=== PATIENT | female | born 1970 | race Caucasian/White ===

== ENCOUNTER 2017-01-10 17:34 | Emergency (ER) | payer OTHER ==
[2017-01-10 18:05] VITALS: BP 144/71; PULSE 84; RESP 14; TEMP 99.5; O2SAT 94
--- NOTE | 2017-01-10 18:10 | UCPHY ---
H & P Patient Type: New Chief Complaint Nursing Narrative: cough/L sided "lung" pain/fever/congestion x 3 days. all 3 kids positive for flu B. Time Seen by Provider: 01/10/17 18:01 HPI/ROS: CHIEF COMPLAINT: Fever, cough HISTORY OF PRESENT ILLNESS: Patient is a 46-year-old female who comes to the Urgent Care complaining of a fever cough and body aches. She has had the symptoms for 4 days. Her and all 3 children and been diagnosed with influenza B. they have been started on Tamiflu. She denies having any type of asthma or respiratory history but does complain of occasional wheezing this illness. She has been using her 's albuterol with moderate improvement. REVIEW OF SYSTEMS: Constitutional: See HPI EENTM: See HPI Respiratory: See HPI Cardiac: denies: chest pain, irregular heart rate, lightheadedness, palpitations Gastrointestinal/Abdominal: denies: abdominal pain, diarrhea, nausea, vomiting, blood streaked stools Genitourinary: denies: dysuria, frequency, hematuria, pain Musculoskeletal: denies: joint pain, muscle pain Skin: denies: lesions, rash, jaundice, bruising Neurological: denies: headache, numbness, paresthesia, tingling, dizziness, weakness Hematologic/Lymphatic: denies: blood clots, easy bleeding, easy bruising Immunologic/allergic: denies: HIV/AIDS, transplant EXAM: GENERAL: Well-appearing HEAD: Atraumatic, normocephalic. EYES: Pupils equal round and reactive to light, extraocular movements intact, sclera anicteric, conjunctiva are normal. ENT: TMs normal, nares patent, oropharynx clear without exudates. Moist mucous membranes. NECK: Normal range of motion, supple without lymphadenopathy or JVD. LUNGS: Breath sounds clear to auscultation bilaterally and equal. No wheezes rales or rhonchi. HEART: Regular rate and rhythm without murmurs, rubs or gallops. ABDOMEN: Soft, nontender, normoactive bowel sounds. No guarding, no rebound. No masses appreciated. BACK: No CVA tenderness, no spinal tenderness, step-offs or deformities EXTREMITIES: Normal range of motion, no pitting or edema. No clubbing or cyanosis. NEUROLOGICAL: Cranial nerves II through XII grossly intact. Normal speech, normal gait. 5/5 strength, normal movement in all extremities, normal sensation PSYCH: Normal mood, normal affect. SKIN: Warm, dry, normal turgor, no visible rashes or lesions. Source: Patient - Personal History LMP (Females 10-55): 8-14 Days Ago - Medical/Surgical History Hx Asthma: No Hx Chronic Respiratory Disease: No Hx Diabetes: No Hx Cardiac Disease: No Hx Renal Disease: No Other PMH: none - Family History Significant Family History: No pertinent family hx - Social History Smoking Status: Never smoked Alcohol Use: Sober Drug Use: None Constitutional: Initial Vital Signs Temperature (C) 37.5 C 01/10/17 17:57 Heart Rate 84 01/10/17 17:57 Respiratory Rate 14 01/10/17 17:57 Blood Pressure 144/71 H 01/10/17 17:57 O2 Sat (%) 94 01/10/17 17:57 O2 Delivery Mode Room Air Allergies/Adverse Reactions: No Known Allergies Allergy (Unverified 01/10/17 17:57) Home Medications: Medication Instructions Recorded Acetaminophen/Codeine 300/30Mg 1 - 2 each PO Q6 PRN #14 tab 01/10/17 [Tylenol #3 (RX)] Medical Decision Making - Diagnostics Imaging: X-ray: chest x-ray was obtained. I viewed the images myself on the PACS system. My interpretation of the images is: negative for acute disease . The radiologist interpretation is pending. ED Course/Re-evaluation: I discussed the patient's x-rays. She is relieved. She is too late to start Tamiflu. We discussed decongestants. I will also give her a dose of steroids to help with the pain in her throat and ribs when coughing. Differential Diagnosis: Partial list of the Differential diagnosis considered include but were not limited to; bronchitis, influenza, viral syndrome and although unlikely based on the history and physical exam, I also considered pneumonia, sepsis. I discussed these differential diagnoses and the plan with the patient as well as the usual and expected course. The patient understands that the diagnosis is provisional and that in medicine we are not always correct and that further workup is often warranted. Usual and customary warnings were given. All of the patient's questions were answered. The patient was instructed to return to the emergency department should the symptoms at all worsen or return, otherwise to followup with the physician as we discussed. - Data Points Laboratory Results: 01/10/17 18:00 Influenza Typ A,B (DFA) POSITIVE FOR FLU B H (NEGATIVE) Medications Given: Discontinued Medications Hydrocodone Bitart/Acetaminophen ([place] 5/325mg Prepack#6) 1 btl TAKEHOME EDNOW ONE Stop: 01/10/17 18:51 Last Admin: 01/10/17 19:36 Dose: 1 btl Dexamethasone (Decadron) 10 mg PO EDNOW ONE Stop: 01/10/17 18:50 Last Admin: 01/10/17 19:35 Dose: 10 mg Departure - Departure Disposition: Home, Routine, Self-Care Clinical Impression: Influenza B Condition: Fair Instructions: Influenza (ED) Referrals: Caitlin Baker MD [Medical Doctor] - As per Instructions Prescriptions: Acetaminophen/Codeine 300/30Mg [Tylenol #3 (RX)] 1 - 2 each PO Q6 PRN #14 tab PRN Reason: *Cough - PQRS PQRS Measurement: Not applicable
[2017-01-10] MEDS ORDERED: DEXAMETHASONE 4 MG TAB PO ONE (18:49)
[2017-01-10] MEDS ORDERED: HYDROCOD/APAP 5/325 PREPACK#6 BTL TAKEHOME ONE (18:50)
== END 2017-01-10 19:38 | disposition home or self-care (01) ==
LOC: CED 17:34
DX: J10.1 Influenza due to other identified influenza virus with other respiratory manifestations (principal)
CPT/HCPCS: 71020-PO; 87400-PO; 99204-PO; G0463-PO